=== PATIENT | female | born 1985 | race Caucasian/White ===

== ENCOUNTER 2020-12-20 20:19 | Outpatient (CLI) | payer BC, OTHER | END 2020-12-20 23:31 | disposition home or self-care (01) | LOC: GENOP 20:19 | DX: O99.891 Other specified diseases and conditions complicating pregnancy (principal); M54.9 Dorsalgia, unspecified; R10.30 Lower abdominal pain, unspecified; Z3A.24 24 weeks gestation of pregnancy | CPT/HCPCS: 96360 ==

== ENCOUNTER 2021-03-03 00:32 | Inpatient (IN) | payer BC, OTHER ==
[2021-03-03 01:28] LABS: HEMOGLOBIN 9.3 gm/dl (12.3-15.3); WHITE BLOOD COUNT 16.4 K/UL (4.5-11.0)
[2021-03-03] MEDS ORDERED: HYDROCODON-ACE1 EAC4 PO (05:56)
[2021-03-03] MEDS ORDERED: IBUPROFEN600 MG PO (05:56)
[2021-03-03] MEDS ORDERED: DOCUSATE SODIU100 MG PO (05:56)
[2021-03-04 07:57] LABS: HEMOGLOBIN 8.6 gm/dl (12.3-15.3)
== END 2021-03-05 12:58 | disposition home or self-care (01) | DRG 788 ==
LOC: GENOP 00:32 → OB 05:25
PROVIDERS: ADMIT Obstetrics & Gynecology
PROC: 4A1HXCZ Monitoring of Products of Conception, Cardiac Rate, External Approach (ICD-10-PCS; 2021-03-03)
PROC: 10D00Z1 Extraction of Products of Conception, Low, Open Approach (ICD-10-PCS; principal; 2021-03-03 06:43)
DX: O44.13 Complete placenta previa with hemorrhage, third trimester (principal); Z37.0 Single live birth; Z3A.35 35 weeks gestation of pregnancy; O99.52 Diseases of the respiratory system complicating childbirth; J45.909 Unspecified asthma, uncomplicated; Z20.822 Contact with and (suspected) exposure to COVID-19; O69.81X0 Labor and delivery complicated by cord around neck, without compression, not applicable or unspecified; N80.1 Endometriosis of ovary
CPT/HCPCS: 82800; 85014; 85018; 85025; 90715; C9113; J0690; J2270; J2274; J2300; J2405; J2590; J3010; J7120; U0002